=== PATIENT | male | born 2000 | race American Indian/Alaskan Native ===

== ENCOUNTER 2021-05-13 11:30 | Emergency (ER) | payer MEDICAID ==
[~2021-05-13] VITALS: Ht 188 cm; Wt 64.0 kg
[2021-05-13] MEDS ORDERED: SODIUM CHLORIDE 0.9% 1,000 ML IV ONE (12:00)
[2021-05-13 12:29] LABS: BASOPHILS % 0.4 % (0.0-2.0); EOSINOPHILS % 0.6 % (0.0-5.0); HEMATOCRIT. 39.8 % (42.0-52.0); HEMOGLOBIN. 13.9 g/dL (14.0-18.0); LYMPHOCYTES % 14.2 % (20.0-50.0); MEAN CORPUSCULAR HEMOGLOBIN 30.1 pg (28.0-32.0); MEAN CORPUSCULAR VOLUME 86.5 fL (80.0-94.0); MEAN PLATELET VOLUME 9.2 fl (7.4-10.4); MONOCYTES % 8.7 % (2.0-8.0); NEUTROPHILS % 76.1 % (40.0-76.0); PLATELET 224 x1000/uL (130-400); RED CELL DISTRIBUTION WIDTH 13.5 % (11.6-14.6)
[2021-05-13 12:32] LABS: CHLORIDE 107 mEq/L (98-107)
[2021-05-13 12:38] LABS: ETHANOL BLOOD < 10 mg/dL
[2021-05-13] MEDS ORDERED: KETOROLAC 15MG/ML VIAL IV NR (12:45)
[2021-05-13 13:00] LABS: INR 1.1; PROTHROMBIN TIME 11.4 sec (9.6-11.0)
[2021-05-13 14:06] LABS: CLARITY URINE CLEAR (CLEAR); COLOR URINE YELLOW (YELLOW); KETONES URINE NEGATIVE (NEGATIVE); LEUKOCYTE ESTERASE URINE NEGATIVE (NEGATIVE); NITRITE URINE NEGATIVE (NEGATIVE); OCCULT BLOOD URINE NEGATIVE (NEGATIVE); PROTEIN URINE NEGATIVE (NEGATIVE); SPECIFIC GRAVITY URINE 1.012 (1.005-1.030); UROBILINOGEN URINE 0.2 E.U./dL (0.2-1.0)
[2021-05-13 14:14] LABS: CANNABINOID URINE SCREEN PRESUMTIVE POSITIVE (NEGATIVE)
[2021-05-13 14:15] LABS: *AMPHETAMINES SCREEN URINE NEGATIVE (NEGATIVE); *BARBITURATES SCREEN URINE NEGATIVE (NEGATIVE); *BENZODIAZEPINES SCREEN URINE NEGATIVE (NEGATIVE); *COCAINE SCREEN URINE NEGATIVE (NEGATIVE); METHADONE URINE SCREEN NEGATIVE (NEGATIVE); OPIATES URINE SCREEN NEGATIVE (NEGATIVE)
[2021-05-13 14:16] LABS: PHENCYCLIDINE URINE SCREEN NEGATIVE (NEGATIVE)
[2021-05-13] MEDS ORDERED: LIDO28.35 TP (15:54)
[2021-05-13] MEDS ORDERED: HYDR-4001 MT (15:54)
[2021-05-13] MEDS ORDERED: NAPR-681 MT (15:54)
[2021-05-13 16:11] VITALS: BP 108/72
== END 2021-05-13 16:13 | disposition home or self-care (01) ==
LOC: ER 11:30
DX: K64.8 Other hemorrhoids (principal); D64.9 Anemia, unspecified; R00.0 Tachycardia, unspecified
CPT/HCPCS: 36415; 80053; 80305; 80320; 81003; 82962; 83690; 85025; 85610; 86850; 86900; 86901; 93005; 96361; 96374; 99284; J1885; J7030; G0480

== ENCOUNTER 2021-05-22 11:10 | Emergency (ER) | payer MEDICAID ==
[~2021-05-22] VITALS: Ht 188 cm; Wt 60.0 kg
[~2021-05-22 11:10] MED LIST: HYDR-4001 MT; LIDO28.35 TP; NAPR-681 MT
[2021-05-22] MEDS ORDERED: PHEN1SUP15 RC (14:36)
[2021-05-22] MEDS ORDERED: LIDO28.35 TP (14:36)
[2021-05-22] MEDS ORDERED: ACET-2708 PO (14:36)
[2021-05-22] MEDS ORDERED: DOCU100T PO (14:36)
[2021-05-22 14:49] VITALS: BP 132/74
== END 2021-05-22 14:44 | disposition home or self-care (01) ==
LOC: ER 11:10
DX: K64.9 Unspecified hemorrhoids (principal)
CPT/HCPCS: 99282